=== PATIENT | male | born 1935 | race Caucasian/White ===

== ENCOUNTER 2019-02-25 06:48 | Day surgery (SDC) | payer MEDICARE, OTHER ==
[2019-02-25] VITALS (9 sets, daily range): BP systolic 145–180; BP diastolic 65–93
[~2019-02-25 06:48] MED LIST: BENA20TA2 PO; OMEP20TA5 PO; SIMV-45 PO
[2019-02-25] MEDS ORDERED: HYDR-4383 PO (07:50)
[2019-02-25 08:00] LABS: BASOPHILS % (AUTO) 0.3 % (0-1); EOSINOPHILS # (AUTO) 0.1 X10'3 (0-0.9); EOSINOPHILS % (AUTO) 2.1 % (0-6); HEMATOCRIT 32.5 % (42.0-52.0); HEMOGLOBIN 11.4 g/dl (14.0-17.9); LYMPHOCYTES # (AUTO) 0.4 X10'3 (1.1-4.8); LYMPHOCYTES % (AUTO) 8.7 % (21-51); MEAN CORPUSCULAR HEMOGLOBIN 31.6 PG (27.0-31.0); MEAN CORPUSCULAR HGB CONC 35.1 g/dL (33.0-36.5); MEAN CORPUSCULAR VOLUME 89.8 FL (78-98); MEAN PLATELET VOLUME 6.9 FL (7.4-10.4); MONOCYTES # (AUTO) 0.5 X10'3 (0-0.9); MONOCYTES % (AUTO) 10.1 % (2-12); NEUTROPHILS % (AUTO) 78.8 % (42-75); PLATELET COUNT 275 X10'3 (140-440); RED BLOOD COUNT 3.62 X10'6 (4.70-6.10); RED CELL DISTRIBUTION WIDTH 13.2 % (11.5-14.5); WHITE BLOOD COUNT 5.1 X10'3 (4.5-11.0)
[2019-02-25 08:18] LABS: ALBUMIN 3.2 G/DL (3.4-5.0); ANION GAP 6 (8-16); BLOOD UREA NITROGEN 16 MG/DL (7-18); BUN/CREATININE RATIO 17.4 (5.4-32.0); CALCIUM 8.5 MG/DL (8.5-10.1); CHLORIDE 94 MMOL/L (99-107); CREATININE 0.92 MG/DL (0.60-1.10); GLUCOSE 101 MG/DL (70-104); POTASSIUM 4.1 MMOL/L (3.5-5.1); SODIUM 127 MMOL/L (135-145); TOTAL CARBON DIOXIDE 26.7 MMOL/L (24-32); eGFR 78 ML/MIN
[2019-02-25] MEDS ORDERED: LIDOcaine 1%/PF 5ML 10 MG/ML VIAL SQ ONE (08:40)
[2019-02-25] MEDS ORDERED: midazolam 2 mg/2 ml injection IV PRN (08:40)
[2019-02-25] MEDS ORDERED: fentaNYL/PF 50MCG/1 ML 2ML syringe IV PRN (08:40)
--- NOTE | 2019-02-25 09:08 | NUR ---
Patient to procedure via gurney
[2019-02-25] MEDS ORDERED: fentaNYL/PF 50MCG/1 ML 2ML syringe ONE (09:10)
[2019-02-25] MEDS ORDERED: midazolam 2 mg/2 ml injection ONE (09:10)
[2019-02-25] MEDS ORDERED: HYDROcodone/acetaminophen 5mg/325mg tablet PO ONE (10:50)
--- NOTE | 2019-02-25 11:55 | NUR ---
Patient ok for discharge per Dr Bonilla.
== END 2019-02-25 10:05 | disposition home or self-care (01) ==
LOC: SSTAY O 06:48
PROVIDERS: ATTEND Radiology Diagnostic Radiology
DX: C34.91 Malignant neoplasm of unspecified part of right bronchus or lung (principal); C85.12 Unspecified B-cell lymphoma, intrathoracic lymph nodes; K21.9 Gastro-esophageal reflux disease without esophagitis; I10 Essential (primary) hypertension; E78.5 Hyperlipidemia, unspecified; Z98.41 Cataract extraction status, right eye; Z98.42 Cataract extraction status, left eye; Z98.890 Other specified postprocedural states; Z79.899 Other long term (current) drug therapy
CPT/HCPCS: 32405; 36415; 71045; 77012; 80048; 85025; J2250; J3010; 88305; 88341; 88342

== ENCOUNTER 2019-09-25 07:15 | Day surgery (SDC) | payer MEDICARE, OTHER ==
[~2019-09-25] VITALS: Ht 172.7 cm; Wt 83.2 kg
[2019-09-25] VITALS (15 sets, daily range): BP systolic 112–148; BP diastolic 48–72
[~2019-09-25 07:15] MED LIST changes: +HYDR-4383 PO
[2019-09-25] MEDS ORDERED: OMEP40CA13 PO (08:06)
[2019-09-25] MEDS ORDERED: PRED20TA PO (08:06)
[2019-09-25] MEDS ORDERED: FLO0.4C PO (08:06)
[2019-09-25] MEDS ORDERED: PRAM0.258 PO (08:06)
[2019-09-25] MEDS ORDERED: OMEG-134 (08:06)
[2019-09-25] MEDS ORDERED: OMEG1CAP2 (08:06)
[2019-09-25] MEDS ORDERED: MULT-1085 PO (08:06)
[2019-09-25] MEDS ORDERED: sodium chloride 0.45% 1,000 ML IV SCH (09:47)
[2019-09-25] MEDS ORDERED: fentaNYL/PF 50MCG/1 ML 2ML syringe ONE (10:22)
[2019-09-25] MEDS ORDERED: midazolam 2 mg/2 ml injection ONE (10:22)
== END 2019-09-25 14:05 | disposition home or self-care (01) ==
LOC: SSTAY O 07:15
PROVIDERS: ATTEND Radiology Diagnostic Radiology
DX: R22.2 Localized swelling, mass and lump, trunk (principal); C83.32 Diffuse large B-cell lymphoma, intrathoracic lymph nodes; K21.9 Gastro-esophageal reflux disease without esophagitis; E78.5 Hyperlipidemia, unspecified; Z79.899 Other long term (current) drug therapy; Z11.59 Encounter for screening for other viral diseases
CPT/HCPCS: 20206; 71045; 77012; 87635; C9803; J2250; J3010; 32405; 88173; 88184; 88185; 88305; 88342; 88360

== ENCOUNTER 2020-05-15 08:27 | Day surgery (SDC) | payer MEDICARE, OTHER ==
[~2020-05-15] VITALS: Ht 172.7 cm; Wt 83.7 kg
[~2020-05-15 08:27] MED LIST changes: -BENA20TA2 PO; +FLO0.4C PO; -HYDR-4383 PO; +MULT-1085 PO; +OMEG-134; +OMEG1CAP2; -OMEP20TA5 PO; +OMEP40CA13 PO; +PRAM0.258 PO; +PRED20TA PO
[2020-05-15] MEDS ORDERED: SENN-25 PO (09:44)
[2020-05-15] MEDS ORDERED: PANT-47 PO (09:44)
[2020-05-15] MEDS ORDERED: ROPI1TAB6 PO (09:44)
[2020-05-15] MEDS ORDERED: DOCU100C33 PO (09:44)
[2020-05-15 09:57] VITALS: BP 104/69
[2020-05-15 10:00] VITALS: BP 104/69
[2020-05-15 10:10] VITALS: BP_SYST 104; BP_SYST 127; BP_DIAS 69; BP_DIAS 76
[2020-05-15 10:12] VITALS: BP 134/63
== END 2020-05-15 10:50 | disposition home or self-care (01) ==
LOC: SSTAY O 08:27
PROVIDERS: ATTEND Radiology Vascular & Interventional Radiology
DX: J90 Pleural effusion, not elsewhere classified (principal); M19.90 Unspecified osteoarthritis, unspecified site; F41.9 Anxiety disorder, unspecified; K21.9 Gastro-esophageal reflux disease without esophagitis; E87.1 Hypo-osmolality and hyponatremia; D50.9 Iron deficiency anemia, unspecified; I50.9 Heart failure, unspecified; Z85.72 Personal history of non-Hodgkin lymphomas; Z79.899 Other long term (current) drug therapy
CPT/HCPCS: 32555; 71045

== ENCOUNTER 2020-07-13 08:04 | Day surgery (SDC) | payer MEDICARE, OTHER ==
[~2020-07-13] VITALS: Ht 172.7 cm; Wt 79.4 kg
[~2020-07-13 08:04] MED LIST changes: +DOCU100C33 PO; -OMEG-134; -OMEP40CA13 PO; +PANT-47 PO; -PRAM0.258 PO; -PRED20TA PO; +ROPI1TAB6 PO; +SENN-25 PO
[2020-07-13] MEDS ORDERED: FURO-150 PO (08:33)
[2020-07-13] MEDS ORDERED: VITAMIN B12 PO (08:33)
[2020-07-13] MEDS ORDERED: albumin 25% 100mL bottle x 1 IV PRN (08:45)
[2020-07-13 08:53] VITALS: BP 138/70
== END 2020-07-13 09:45 | disposition home or self-care (01) ==
LOC: SSTAY O 08:04
PROVIDERS: ATTEND Radiology Diagnostic Radiology
DX: J90 Pleural effusion, not elsewhere classified (principal); Z53.8 Procedure and treatment not carried out for other reasons; M19.90 Unspecified osteoarthritis, unspecified site; F41.9 Anxiety disorder, unspecified; K21.9 Gastro-esophageal reflux disease without esophagitis; E87.1 Hypo-osmolality and hyponatremia; D50.9 Iron deficiency anemia, unspecified; I89.0 Lymphedema, not elsewhere classified; Z85.72 Personal history of non-Hodgkin lymphomas; Z79.899 Other long term (current) drug therapy
CPT/HCPCS: 76604